=== PATIENT | male | born 2000 | race Caucasian/White ===

== ENCOUNTER 2022-01-12 14:27 | Emergency (ER) | payer MEDICAID, OTHER ==
[~2022-01-12] VITALS: Ht 180.3 cm; Wt 113.0 kg
[~2022-01-12 14:27] MED LIST: BO1 TP; IBUP-2029 MT
[2022-01-12] MEDS ORDERED: IBUPROFEN 600MG TABLET PO STA (15:33)
[2022-01-12] MEDS ORDERED: IBUP-2029 PO (17:13)
[2022-01-12 17:37] VITALS: BP 131/76
== END 2022-01-12 17:37 | disposition home or self-care (01) ==
LOC: ER 14:27
DX: S93.492A Sprain of other ligament of left ankle, initial encounter (principal); X50.1XXA Overexertion from prolonged static or awkward postures, initial encounter; Y93.B9 Activity, other involving muscle strengthening exercises; Y92.219 Unspecified school as the place of occurrence of the external cause
CPT/HCPCS: 73610; 99283; Z7610